=== PATIENT | female | born 1930 | race Caucasian/White ===

== ENCOUNTER 2017-06-19 14:16 | Inpatient (IN) | payer BC, OTHER ==
[2017-06-19 14:37] VITALS: BMI 24.2
--- NOTE | 2017-06-19 16:09 | PDOC ---
History of Present Illness - General History Source: Patient, Family Exam Limitations: No Limitations - History of Present Illness Initial Comments: 06/19/17 16:42 The patient is a 86 year old female presenting with her daughter, with a significant past medical history of HTN, dementia, hypothyroidism, anemia, COPD , bradycardia and hard of hearing, who presents to the emergency department with rectal bleeding since this morning. The daughter notes that the patient's rectal bleeding is red and heavy accompanied with clots. The patient's last bowel movement was 30 minutes prior to presentation. She also notes that the patient has been having loose bowel movements over the past few months. The daughter reports that the patient fell 2 weeks ago, landing on her behind. The patient denies chest pain, shortness of breath, headache and dizziness. Denies fever, chills, nausea, vomit, and constipation. Denies dysuria, frequency , urgency and hematuria. History limited due to dementia. Allergies: None Past surgical history: None reported Social history: No alcohol, tobacco or drug use reported <Mansoor Parra - Last Filed: 06/19/17 16:42> <Derik Escobedo - Last Filed: 06/19/17 21:04> <Azar Edwards - Last Filed: 06/24/17 00:43> - General Chief Complaint: Rectal Bleed Stated Complaint: RECTAL BLEEDING Time Seen by Provider: 06/19/17 14:54 Past History <Mansoor Parra - Last Filed: 06/19/17 16:42> <Derik Escobedo - Last Filed: 06/19/17 21:04> - Past Medical History Anemia: Yes Asthma: Yes CVA: Yes COPD: Yes Dementia: Yes HTN: Yes Hypercholesterolemia: Yes Thyroid Disease: Yes - Psycho/Social/Smoking Cessation Hx Anxiety: No Suicidal Ideation: No Smoking History: Never smoked If you are a former smoker, when did you quit?: 20yrs Information on smoking cessation initiated: No Hx Alcohol Use: No Drug/Substance Use Hx: No Substance Use Type: None <Azar Edwards - Last Filed: 06/24/17 00:43> - Past Medical History Allergies/Adverse Reactions: Allergies Allergy/AdvReac Type Severity Reaction Status Date / Time No Known Allergies Allergy Verified 06/19/17 14:37 Home Medications: Ambulatory Orders Atenolol [Tenormin -] 50 mg PO DAILY 06/19/17 Budesonide [Pulmicort 0.5 mg Nebulizer -] 1 neb NEB BID 06/19/17 Levothyroxine [Synthroid -] 75 mcg PO DAILY 06/19/17 Losartan Potassium 100 mg PO DAILY 06/19/17 Donepezil HCl [Aricept -] 5 mg PO DAILY #7 tablet 06/22/17 Psyllium [Metamucil (Sugar-Free) -] 5.85 gm PO BID #60 packet 06/22/17 Ranitidine [Zantac -] 150 mg PO BID #60 tablet 06/22/17 Review of Systems - Review of Systems Able to Perform ROS?: Yes Comments:: 06/19/17 16:42 CONSTITUTIONAL: No reported: Fever, Chills, Diaphoresis, Generalized Weakness, Malaise, Loss of Appetite HEENT: No reported: Rhinorrhea, Nasal Congestion, Throat Pain, Throat Swelling, Difficulty Swallowing, Mouth Swelling, Ear Pain, Eye Pain, Visual Changes CARDIOVASCULAR: No reported: Chest Pain, Syncope, Palpitations, Irregular Heart Rate, Lightheadedness, Peripheral Edema RESPIRATORY: No reported: Cough, Shortness of Breath, SOB with Exertion, Orthopnea, Wheezing , Stridor, Hemoptysis GASTROINTESTINAL: Reported: Rectal bleeding and diarrhea. No reported: Abdominal pain, Abdominal Distension, Nausea, Vomiting, Constipation GENITOURINARY: No reported: Dysuria, Frequency, Urgency, Hesitancy, Flank Pain, Genital Pain MUSCULOSKELETAL: No reported: Myalgia, Arthralgia, Joint Swelling, Back pain, Neck Pain SKIN: No reported: Rash, Itching, Pallor HEMEATOLOGIC/IMMUNOLOGIC: No reported: Easy Bleeding, Easy Bruising, Lymphadenopathy, Frequent infections ENDOCRINE: No reported: Unexplained Weight Gain, Unexplained Weight Loss, Heat Intolerance , Cold Intolerance NEUROLOGIC: No reported: Headache, Focal Weakness, Paresthesias, Vertigo, Lightheadedness, Unsteady Gait, Seizure, Mental Status Changes, Incontinence PSYCHIATRIC: No reported: Anxiety, Depression <Mansoor Parra - Last Filed: 06/19/17 16:42> *Physical Exam - Vital Signs Last Vital Signs Temp Pulse Resp BP Pulse Ox 98.1 F 47 L 16 154/70 93 L 06/19/17 14:26 06/19/17 14:26 06/19/17 14:26 06/19/17 14:26 06/19/17 14:26 - Physical Exam Comments: 06/19/17 16:43 GENERAL: The patient is awake, alert, and fully oriented, Nontoxic - in no acute distress. HEAD: Normocephalic, atraumatic. EYES: extraocular movements intact, sclera anicteric, conjunctiva clear. ENT: Normal voice, Moist mucous membranes. NECK: Normal range of motion, supple LUNGS: Breath sounds equal, clear to auscultation bilaterally. No wheezes, no rhonchi, no rales. HEART: (+) Bradycardic. Without murmur, rub or gallop. ABDOMEN: Soft, nontender, normoactive bowel sounds. No guarding, no rebound.No CVA tenderness EXTREMITIES: Normal range of motion, no edema. No clubbing or cyanosis. No cords, erythema, or tenderness. NEUROLOGICAL: No facial assymetry, Normal speech, PSYCH: Normal mood, normal affect. SKIN: Warm, Dry, normal turgor RECTAL EXAM: (+) Maroon colored stool. <Mansoor Parra - Last Filed: 06/19/17 16:42> - Vital Signs Last Vital Signs Temp Pulse Resp BP Pulse Ox 98.1 F 47 L 16 154/70 93 L 06/19/17 14:26 06/19/17 14:26 06/19/17 14:26 06/19/17 14:26 06/19/17 14:26 <Derik Escobedo - Last Filed: 06/19/17 21:04> - Vital Signs Last Vital Signs Temp Pulse Resp BP Pulse Ox 98.1 F 47 L 16 154/70 93 L 06/19/17 14:26 06/19/17 14:26 06/19/17 14:26 06/19/17 14:26 06/19/17 14:26 <Azar Edwards - Last Filed: 06/24/17 00:43> Heart Score/ECG Review - ECG Impressions Comment:: 06/19/17 16:12 Twelve-lead EKG was performed and reviewed by me. There is normal sinus rhythm with a heart rate of 44, LAFB moderate criteria for LVG <Azar Edwards - Last Filed: 06/24/17 00:43> ED Treatment Course - LABORATORY CBC & Chemistry Diagram: 06/19/17 15:55 06/19/17 15:55 - ADDITIONAL ORDERS Additional order review: Laboratory Results 06/19/17 15:52 Stool Occult Blood Positive 06/19/17 15:55 RBC 3.74 MCV 96.0 MCHC 33.3 RDW 13.3 MPV 9.5 Neutrophils % 54.4 Lymphocytes % 29.3 Monocytes % 11.7 H Eosinophils % 3.9 Basophils % 0.7 <Mansoor Parra - Last Filed: 06/19/17 16:42> - LABORATORY CBC & Chemistry Diagram: 06/19/17 15:55 06/19/17 15:55 - ADDITIONAL ORDERS Additional order review: Laboratory Results 06/19/17 06/19/17 06/19/17 15:55 15:55 15:55 INR 1.07 Sodium 139 Potassium 4.6 Chloride 104 Carbon Dioxide 31 Anion Gap 4 L BUN 22 H Creatinine 1.1 H Creat Clearance w eGFR 46.98 Random Glucose 74 Calcium 9.4 Total Bilirubin 0.4 AST 17 ALT 17 Alkaline Phosphatase 59 Total Protein 6.6 Albumin 3.2 L Stool Occult Blood Blood Type O POSITIVE Antibody Screen Negative 06/19/17 15:52 INR Sodium Potassium Chloride Carbon Dioxide Anion Gap BUN Creatinine Creat Clearance w eGFR Random Glucose Calcium Total Bilirubin AST ALT Alkaline Phosphatase Total Protein Albumin Stool Occult Blood Positive Blood Type Antibody Screen 06/19/17 15:55 RBC 3.74 MCV 96.0 MCHC 33.3 RDW 13.3 MPV 9.5 Neutrophils % 54.4 Lymphocytes % 29.3 Monocytes % 11.7 H Eosinophils % 3.9 Basophils % 0.7 <Derik Escobedo - Last Filed: 06/19/17 21:04> - LABORATORY CBC & Chemistry Diagram: 06/21/17 16:45 06/21/17 08:28 - RADIOLOGY Radiology Studies Ordered: Category Date Time Status ABDOMEN & PELVIS CT WITH CONTR [CT] Stat CT Scan 06/19/17 15:19 Ordered CHEST X-RAY PORTABLE* [RAD] Stat Radiology 06/19/17 15:16 Ordered <Azar Edwards - Last Filed: 06/24/17 00:43> Medical Decision Making - Medical Decision Making 06/19/17 21:04 CT of abdomen and pelvis reveals increased thickness of the wall of the ascending and transverse colon. No other abnormalities noted. No indication for antibiotic therapy at this time. <Derik Escobedo - Last Filed: 06/19/17 21:04> - Medical Decision Making 06/19/17 16:09 86y F hx of copd, anemia, cva, dementia, htn, hl, hypothryoidsm presents with GIB, pt notes she has had multiple episodes of rectal bleeding that is maroon, red and without associated fever/chills, n/v, abd pain, chest pain, palpitations , lightheadedness. on exam pt is notably bradycardic, but daughter states pt is typically bradycardic. he also has some marie stool on rectal exam. bp stable suspect LGIB, diverticular bleed will ck labs, ct abd pt on monitoring analyst will continue to monitor 06/19/17 17:09 pt signed out to dr. escobedo to fu with results, reassess the pt and disposition the pt <Azar Edwards - Last Filed: 06/24/17 00:43> *DC/Admit/Observation/Transfer - Attestations Scribe Attestion: 06/19/17 16:43 Documentation prepared by Mansoor Parra, acting as medical affairs leader for Azar Edwards MD <Mansoor Parra - Last Filed: 06/19/17 16:42> - Discharge Dispostion Admit: Yes <Derik Escobedo - Last Filed: 06/19/17 21:04> <Azar Edwards - Last Filed: 06/24/17 00:43> Diagnosis at time of Disposition: Rectal bleed - Discharge Dispostion Disposition: VNS/HOME HEALTH CARE Condition at time of disposition: Stable - Prescriptions - Referrals
[2017-06-19 16:20] LABS: BASOPHIL 0.7 % (0-2.0); EOSINOPHIL 3.9 % (0-4.5); MCH 31.9 pg (25.7-33.7); MCHC 33.3 g/dl (32.0-36.0); MEAN PLT VOLUME 9.5 fl (7.5-11.1); NEUTROPHILS 54.4 % (42.8-82.8); PLATELET COUNT 205 K/MM3 (134-434); RDW 13.3 % (11.6-15.6); WHITE BLOOD COUNT 5.9 K/mm3 (4.0-10.0)
[2017-06-19 16:31] LABS: INR 1.07 (0.82-1.09); PROTHROMBIN TIME (PATIENT) 11.8 SEC (9.98-11.88)
[2017-06-19 16:46] LABS: ALBUMIN 3.2 g/dl (3.4-5.0); ANION GAP 4 (8-16); BILIRUBIN,TOTAL 0.4 mg/dL (0.2-1.0); CALCIUM 9.4 mg/dL (8.5-10.1); CO2 31 mmol/L (21-32); CREATININE 1.1 mg/dL (0.55-1.02); GLUCOSE,RANDOM 74 mg/dL (74-106); SGOT/AST 17 U/L (15-37); SGPT/ALT 17 U/L (12-78); TOT PROT 6.6 g/dl (6.4-8.2)
[2017-06-19 16:47] LABS: ALK PHOS 59 U/L (45-117)
--- NOTE | 2017-06-19 17:55 | HP ---
CHIEF COMPLAINT: Rectal bleeding PCP: Dr. Janette Franco, [place]/[facility] HISTORY OF PRESENT ILLNESS: 86 year-old female with a PMH significant for HTN, bradycardia, COPD, stomach ulcers, anemia, dementia, and hypothyroidism. The patient's daughter brought her to the ED with a report of several episodes of rectal bleeding since this morning. The bleeding was reportedly red/maroon, heavy, with clots. Patient denies abdominal pain. Denies nausea, vomiting, diarrhea, or constipation. Denies dysuria, frequency, urgency, or hematuria. Daughter thinks last EGD was about 5 years ago, and last colonoscopy was more than 10 years ago. ER course was notable for: (1) Several episodes of maroon stool (2) FOBT + (3) H/H 11.9/35.9 Recent Travel: No PAST MEDICAL HISTORY: Hypertension Bradycardia COPD Dementia Hypothyroidism Anemia Hearing Loss PAST SURGICAL HISTORY: Bilateral hip replacements Social History: Smoking: no Alcohol: no Drugs: no Family History: Mother and sister of stomach cancer Allergies No Known Allergies Allergy (Verified 06/19/17 14:37) HOME MEDICATIONS: Medication Instructions Recorded Atenolol [Tenormin -] 50 mg PO DAILY 06/19/17 Budesonide [Pulmicort 0.5 mg 1 neb NEB BID 06/19/17 Nebulizer -] Donepezil HCl [Aricept -] 10 mg PO DAILY 06/19/17 Levothyroxine [Synthroid -] 75 mcg PO DAILY 06/19/17 Losartan Potassium 100 mg PO DAILY 06/19/17 REVIEW OF SYSTEMS CONSTITUTIONAL: Absent: fever, chills, diaphoresis, generalized weakness, malaise, loss of appetite, weight change HEENT: Absent: rhinorrhea, nasal congestion, throat pain, throat swelling, difficulty swallowing, mouth swelling, ear pain, eye pain, visual changes CARDIOVASCULAR: Absent: chest pain, syncope, palpitations, irregular heart rate, lightheadedness , peripheral edema RESPIRATORY: Absent: cough, shortness of breath, dyspnea with exertion, orthopnea, wheezing, stridor, hemoptysis GASTROINTESTINAL: Present: dark-red blood per rectum Absent: abdominal pain, abdominal distension, nausea, vomiting, diarrhea, constipation, GENITOURINARY: Absent: dysuria, frequency, urgency, hesitancy, hematuria, flank pain, genital pain MUSCULOSKELETAL: Absent: myalgia, arthralgia, joint swelling, back pain, neck pain SKIN: Absent: rash, itching, pallor HEMATOLOGIC/IMMUNOLOGIC: Absent: easy bleeding, easy bruising, lymphadenopathy, frequent infections ENDOCRINE: Absent: unexplained weight gain, unexplained weight loss, heat intolerance, cold intolerance NEUROLOGIC: Absent: headache, focal weakness or paresthesias, dizziness, unsteady gait, seizure, mental status changes, bladder or bowel incontinence PSYCHIATRIC: Absent: anxiety, depression, suicidal or homicidal ideation, hallucinations. PHYSICAL EXAMINATION Vital Signs - 24 hr 06/19/17 14:26 Temperature 98.1 F Pulse Rate 47 L Respiratory 16 Rate Blood Pressure 154/70 O2 Sat by Pulse 93 L Oximetry (%) GENERAL: Awake, alert, and fully oriented, in no acute distress. HEAD: Normal with no signs of trauma. EYES: Pupils equal, round and reactive to light, extraocular movements intact, sclera anicteric, conjunctiva clear. No lid lag. EARS, NOSE, THROAT: Ears normal, nares patent, oropharynx clear without exudates. Moist mucous membranes. NECK: Normal range of motion, supple without lymphadenopathy, JVD, or masses. LUNGS: Breath sounds equal, clear to auscultation bilaterally. No wheezes, and no crackles. No accessory muscle use. HEART: Regular rate and rhythm, normal S1 and S2 without murmur, rub or gallop. ABDOMEN: Soft, nontender, not distended, normoactive bowel sounds, no guarding, no rebound, no masses. No hepatomegaly or splenomegaly. MUSCULOSKELETAL: Normal range of motion at all joints. No bony deformities or tenderness. No CVA tenderness. UPPER EXTREMITIES: 2+ pulses, warm, well-perfused. No cyanosis. No clubbing. No peripheral edema. LOWER EXTREMITIES: 2+ pulses, warm, well-perfused. No calf tenderness. No peripheral edema. NEUROLOGICAL: Cranial nerves II-XII intact. Normal speech. Normal gait. PSYCHIATRIC: Cooperative. Good eye contact. Appropriate mood and affect. SKIN: Warm, dry, normal turgor, no rashes or lesions noted, normal capillary refill. Laboratory Results - last 24 hr 06/19/17 06/19/17 06/19/17 15:52 15:55 15:55 WBC 5.9 RBC 3.74 Hgb 11.9 Hct 35.9 MCV 96.0 MCH 31.9 MCHC 33.3 RDW 13.3 Plt Count 205 MPV 9.5 Neutrophils % 54.4 Lymphocytes % 29.3 Monocytes % 11.7 H Eosinophils % 3.9 Basophils % 0.7 INR 1.07 Sodium Potassium Chloride Carbon Dioxide Anion Gap BUN Creatinine Creat Clearance w eGFR Random Glucose Calcium Total Bilirubin AST ALT Alkaline Phosphatase Total Protein Albumin Stool Occult Blood Positive Blood Type Antibody Screen 06/19/17 06/19/17 15:55 15:55 WBC RBC Hgb Hct MCV MCH MCHC RDW Plt Count MPV Neutrophils % Lymphocytes % Monocytes % Eosinophils % Basophils % INR Sodium 139 Potassium 4.6 Chloride 104 Carbon Dioxide 31 Anion Gap 4 L BUN 22 H Creatinine 1.1 H Creat Clearance w eGFR 46.98 Random Glucose 74 Calcium 9.4 Total Bilirubin 0.4 AST 17 ALT 17 Alkaline Phosphatase 59 Total Protein 6.6 Albumin 3.2 L Stool Occult Blood Blood Type O POSITIVE Antibody Screen Negative ASSESSMENT/PLAN 86 year-old female with a PMH significant for HTN, bradycardia, stomach ulcers, anemia, COPD, dementia, and hypothyroidism. Admitted for lower GI bleed. Lower GI bleed h/o stomach ulcers --h/h stable; repeat cbc 10:00pm --CTAP with contrast pending --type and screen done --IV fluids Normocytic anemia --h/h stable Hypertension --BP 154/70 on admission --hold anti-hypertensives (losartan, atenolol) for now due to bleeding Bradycardia --HR 47, daughter says baseline COPD --continue budenoside Dementia --continue donepezil Hypothyroidism --f/u TSH --continue levothyroxine F/E/N Fluids: D5NS@ 125mL/hr Electrolytes: replete as indicated Nutrition: NPO DVT prophylaxis: SCDs, ambulation Physical therapy evaluation Dispo: continues to require inpatient care. Full code. Visit type - Emergency Visit Emergency Visit: Yes ED Registration Date: 06/19/17 Care time: The patient presented to the Emergency Department on the above date and was hospitalized for further evaluation of their emergent condition. - New Patient This patient is new to me today: Yes Date on this admission: 06/19/17 - Critical Care Critical Care patient: No
[2017-06-19] MEDS: DEXTROSE 5%-NORMAL SALINE 1,000 ML IV SCH (20:38)
[2017-06-19 23:55] LABS: BASOPHIL 0.6 % (0-2.0); EOSINOPHIL 2.9 % (0-4.5); MCH 31.9 pg (25.7-33.7); MCHC 32.6 g/dl (32.0-36.0); MEAN CELL VOLUME 97.8 fl (80-96); MEAN PLT VOLUME 9.8 fl (7.5-11.1); NEUTROPHILS 38.7 % (42.8-82.8); PLATELET COUNT 239 K/MM3 (134-434); RDW 13.2 % (11.6-15.6)
[2017-06-20] MEDS: LEVOTHYROXINE NA 75 MCG TABLET (FP) PO SCH (06:57)
--- NOTE | 2017-06-20 08:14 | EKG ---
Test Reason : Blood Pressure : / mmHG Vent. Rate : 044 BPM Atrial Rate : 044 BPM P-R Int : 196 ms QRS Dur : 088 ms QT Int : 470 ms P-R-T Axes : 015 -49 076 degrees QTc Int : 401 ms MARKED SINUS BRADYCARDIA LEFT ANTERIOR FASCICULAR BLOCK MODERATE VOLTAGE CRITERIA FOR LVH, MAY BE NORMAL VARIANT CANNOT RULE OUT SEPTAL INFARCT , AGE UNDETERMINED ABNORMAL ECG NO PREVIOUS ECGS AVAILABLE Confirmed by JUAN BISHOP, RADHA ([id number]) on 06/20/2017 8:13:43 AM Referred By: Confirmed By:RADHA MARTINEZ MD
[2017-06-20 09:00] LABS: BASOPHIL 0.5 % (0-2.0); EOSINOPHIL 0.4 % (0-4.5); MCHC 33.1 g/dl (32.0-36.0); MEAN CELL VOLUME 96.7 fl (80-96); MEAN PLT VOLUME 9.3 fl (7.5-11.1); NEUTROPHILS 72.4 % (42.8-82.8); PLATELET COUNT 187 K/MM3 (134-434); RDW 13.3 % (11.6-15.6); WHITE BLOOD COUNT 6.4 K/mm3 (4.0-10.0)
[2017-06-20 09:27] LABS: INR 1.09 (0.82-1.09)
[2017-06-20 09:30] LABS: ACTIVATED PTT 28.4 SECONDS (26.9-34.4)
[2017-06-20 10:10] LABS: ALBUMIN 2.7 g/dl (3.4-5.0); ANION GAP 6 (8-16); CALCIUM 8.7 mg/dL (8.5-10.1); CO2 28 mmol/L (21-32); GLUCOSE,RANDOM 104 mg/dL (74-106)
[2017-06-20] MEDS: DEXTROSE 5%-NORMAL SALINE 1,000 ML IV SCH (10:12)
[2017-06-20 10:14] LABS: ALK PHOS 51 U/L (45-117); BILIRUBIN,TOTAL 0.4 mg/dL (0.2-1.0); CREATININE 1.1 mg/dL (0.55-1.02); PHOSPHOROUS 4.4 mg/dL (2.5-4.9); SGOT/AST 13 U/L (15-37); SGPT/ALT 14 U/L (12-78); TOT PROT 5.5 g/dl (6.4-8.2)
--- NOTE | 2017-06-20 10:37 | CON.GI ---
Consult Consult Specialty:: GI - For Dr. Keenan Vaughn Referred by:: Hospitalist Terrence Reason for Consultation:: Rectal bleeding - History of Present Illness Chief Complaint: Rectal bleeding History of Present Illness: 86F admitted for evaluation of rectal bleeding yesterday afternoon. She has a history of dementia and is accompanied by her daughter who provided the history. Apparently Ms. Couch had a BM yesterday morning then began to pass bright red blood as well as clots from her rectum. This was around 10 AM anfd the bleeding persisted prompting ER evaluation. In the ER triage vitals revealed T: 98 P: 47 BP: 154/70. A CTA was performed in the ER however given that PO contrast was ordered as well, it was not a suitable exam for localizing the GI bleed. It did reveal extensive diverticulosis throughout the colon. Initial Hgb was 11.9 and this morning it was 10. There has been no similar episodes in the past. There was no associated nausea, vomiting, abdominal pain fevers/chills. Her daughter says that Ms. Couch has has looser green BM's of late. She also takes ASA 81mg once daily, and an iron pill every other day given a history of anemia. Her daughter believes that her mother had an upper endoscopy and colonoscopy several years ago that were OK. There is mention of PUD in the H&P however this was not described by Ms. Couch's daughter. Overnight a large volume of dark red blood was reported, none this AM. Ms. Couch's mother had a history of "stomach cancer" as did her younger sister. Her older sister had a history of colon polyps. - History Source History Provided By: Family Member, Medical Record Limitations to Obtaining History: Dementia - Past Medical History ARCHEOLOGIST: Yes: Alzheimer's Cardio/Vascular: Yes: HTN Pulmonary: Yes: COPD (? COPD. This was in H&P but not mentioned by daughter) Infectious Disease: Yes: Tuberculosis (In youth) Endocrine: Yes: Hypothyroidism - Past Surgical History Past Surgical History: Yes: Appendectomy (Possible appendectomy given rlq scar) , , Hysterectomy, Joint Replacement (B/L Hips) - Alcohol/Substance Use Hx Alcohol Use: No History of Substance Use: reports: None - Smoking History Smoking history: Never smoked If you are a former smoker, when did you quit?: 20yrs - Social History Usual Living Arrangement: With Child ADL: Family Assistance Place of : Other ([place]) History of Recent Travel: No Home Medications - Allergies Allergies/Adverse Reactions: Allergies Allergy/AdvReac Type Severity Reaction Status Date / Time No Known Allergies Allergy Verified 06/19/17 14:37 - Home Medications Home Medications: Ambulatory Orders Atenolol [Tenormin -] 50 mg PO DAILY 06/19/17 Budesonide [Pulmicort 0.5 mg Nebulizer -] 1 neb NEB BID 06/19/17 Donepezil HCl [Aricept -] 10 mg PO DAILY 06/19/17 Levothyroxine [Synthroid -] 75 mcg PO DAILY 06/19/17 Losartan Potassium 100 mg PO DAILY 06/19/17 Family Disease History - Family Disease History Family Disease History: Other: Mother (Stomach Ca), Sister (1 w/ Stomach Ca 1 with colon polyps) Review of Systems - Review of Systems Constitutional: denies: Chills, Unintentional Wgt. Loss Cardiovascular: denies: Chest Pain Respiratory: denies: SOB Gastrointestinal: reports: Diarrhea, Rectal Bleeding. denies: Abdominal Pain, Bloating, Constipation, Nausea, Vomiting, Vomiting Blood Hematology/Lymphatic: denies: Easily Bruised Physical Exam-GI Vital Signs: Vital Signs Temperature 97.9 F 06/20/17 08:00 Pulse Rate 56 L 06/20/17 08:00 Respiratory Rate 20 06/20/17 08:00 Blood Pressure 135/62 06/20/17 08:00 O2 Sat by Pulse Oximetry (%) 96 06/19/17 22:00 Constitutional: Yes: Calm Eyes: No: Sclera Icterus Cardiovascular: Yes: Bradycardia (Regular rhythm). No: Murmur Respiratory: Yes: CTA Bilaterally Gastrointestinal Inspection: Yes: Scars (Vertical pelvic surgical scar, + ? faint RLQ surgical scar). No: Distention ...Auscultate: Yes: Normoactive Bowel Sounds ...Palpate: No: Hepatomegaly, Splenomegaly, Tenderness ...Percussion: No: Tympanitic ...Rectal Exam: Yes: Other (Small amount of dark red stool in rectal vault) Edema: No Neurological: Yes: Alert Labs: CBC, BMP 06/20/17 07:25 06/20/17 07:25 INR, PTT INR 1.09 (0.82-1.09) 06/20/17 07:25 Problem List - Problems (1) Rectal bleed Assessment/Plan: Remains hemodynamically stable CTA was non-diagnostic given that PO contrast was given in the ER so was of no use for localizing the bleed. Higher in the differential would need to be diverticular hemorrhage given CT scan findings as opposed to upper GI source given her hemodynamic stability in the setting of hematochezia. Would advise the following: Maintain NPO with IV hydration Repeat CBC 1pm Transfer to monitored setting. If significant rectal bleeding occurs / change in hemodynamics, transfer to ICU Protonix 40mg IVPB for now Type and screen, large bore IV access for resuscitation if necessary ? need for continued ASA as an outpatient. This will need to be discussed further with her PMD I did discuss both upper endoscopy and colonoscopy with Ms. Couch and her daughter who was present bedside. We discussed potential risks of the procedures like but not limited to bleeding, perforation requiring surgery to repair, infection and sedation medication effects all of which could be potentially life threatening. We also discussed not having the procedures performed as an option. They have both agreed to the procedures. Ms. Couch' s daughter signed given Ms. Couch's history of Dementia. Dr. Vaughn will resume coverage 06/21/17 Code(s): K62.5 - HEMORRHAGE OF ANUS AND RECTUM (2) Bradycardia Assessment/Plan: On atenolol w/ stable BP Being monitored Code(s): R00.1 - BRADYCARDIA, UNSPECIFIED
--- NOTE | 2017-06-20 10:47 | PN ---
Physical Exam: SUBJECTIVE: Patient seen and examined. Denies abdominal pain. Voices no complaints. Advised by daughter and overnight staff patient became very agitated last night when daughter not present, pulled out IV, aggressive with staff. Daughter reported yesterday to this provider patient had remote h/o stomach ulcers. Daughter further reports patient is on home low-dose ASA and daily meclizine OBJECTIVE: Vital Signs Period Temp Pulse Resp BP Sys/Beltran Pulse Ox Last 24 Hr 97.8 F-98.2 F 46-91 18-20 127-168/60-87 96-97 GENERAL: The patient is awake, alert. A&Ox2. HEAD: Normal with no signs of trauma. EYES: PERRL, extraocular movements intact, sclera anicteric, conjunctiva clear. No ptosis. LUNGS: Breath sounds equal, clear to auscultation bilaterally, no wheezes, no crackles, no accessory muscle use. HEART: Regular rate and rhythm, S1, S2 without murmur, rub or gallop. ABDOMEN: Soft, nontender, nondistended, normoactive bowel sounds, no guarding, no rebound EXTREMITIES: 2+ pulses, warm, well-perfused, no edema. NEUROLOGICAL: Cranial nerves II through XII grossly intact. Normal speech, gait not observed. Laboratory Results - last 24 hr 06/19/17 06/20/17 06/20/17 23:45 07:25 07:25 WBC 12.0 H D 6.4 D RBC 3.77 3.12 L Hgb 12.0 10.0 L D Hct 36.9 30.2 L D MCV 97.8 H 96.7 H MCH 31.9 32.0 MCHC 32.6 33.1 RDW 13.2 13.3 Plt Count 239 187 D MPV 9.8 9.3 Neutrophils % 38.7 L D 72.4 D Lymphocytes % 48.8 H D 19.9 D Monocytes % 9.0 6.8 Eosinophils % 2.9 0.4 D Basophils % 0.6 0.5 INR 1.09 PTT (Actin FS) 28.4 Sodium Potassium Chloride Carbon Dioxide Anion Gap BUN Creatinine Creat Clearance w eGFR Random Glucose Calcium Phosphorus Magnesium Total Bilirubin AST ALT Alkaline Phosphatase Total Protein Albumin TSH 06/20/17 06/20/17 07:25 07:25 WBC RBC Hgb Hct MCV MCH MCHC RDW Plt Count MPV Neutrophils % Lymphocytes % Monocytes % Eosinophils % Basophils % INR PTT (Actin FS) Sodium 139 Potassium 4.7 Chloride 105 Carbon Dioxide 28 Anion Gap 6 L BUN 24 H Creatinine 1.1 H Creat Clearance w eGFR 46.98 Random Glucose 104 D Calcium 8.7 Phosphorus 4.4 Magnesium 2.0 Total Bilirubin 0.4 AST 13 L D ALT 14 Alkaline Phosphatase 51 Total Protein 5.5 L Albumin 2.7 L TSH 0.91 Active Medications Generic Name Dose Route Start Last Admin Trade Name January PRN Reason Stop Dose Admin Budesonide 1 amp 06/19/17 22:00 Pulmicort 0.5 Mg Nebulizer - NEB BID LONG Donepezil HCl 10 mg 06/20/17 10:00 Aricept - PO DAILY LONG Dextrose/Sodium Chloride 1,000 mls @ 125 mls/hr 06/19/17 18:00 06/19/17 20:38 D5-Ns - IV 125 mls/hr ASDIR LONG Administration Levothyroxine Sodium 75 mcg 06/20/17 07:00 06/20/17 06:57 Synthroid - PO 75 mcg ACBK LONG Administration ASSESSMENT/PLAN 86 year-old female with a PMH significant for HTN, bradycardia, stomach ulcers, anemia, COPD, dementia, and hypothyroidism. Admitted for lower GI bleed. Lower GI bleed h/o stomach ulcers Normocytic anemia --large maroon-stool movement overnight; Hgb 12.0-->10.0 --8/5 CTAP: extensive diffuse diverticulosis; non-diagnostic for GI bleed due to PO contrast --cbc q6h --IV fluids --hold home ASA --protonix IVPB --large bore access --current type and screen --daughter has signed consent for EGD and colonoscopy Hypertension --normotensive off anti-hypertensives, continue to hold due to bleeding Bradycardia --HR 40-50s, baseline --asymptomatic COPD --continue budenoside Dementia with agitation --continue donepezil --hold home meclizine Hypothyroidism --f/u TSH --continue levothyroxine F/E/N Fluids: D5NS@ 125mL/hr Electrolytes: replete as indicated Nutrition: NPO DVT prophylaxis: SCDs, ambulation Physical therapy evaluation Dispo: Transfer to telemetry. Full Code. Visit type - Emergency Visit Emergency Visit: Yes ED Registration Date: 06/19/17 Care time: The patient presented to the Emergency Department on the above date and was hospitalized for further evaluation of their emergent condition. - New Patient This patient is new to me today: No - Critical Care Critical Care patient: No
[2017-06-20] MEDS ORDERED: PT OWN MED DRAWER 7, Y5N ONE (11:28)
[2017-06-20] MEDS: DONEPEZIL HCL 10 MG TABLET (FP) PO SCH (11:34)
[2017-06-20] MEDS ORDERED: PANTOPRAZOLE SODIUM 40 MG VIAL ONE (12:16)
[2017-06-20] MEDS ORDERED: SODIUM CHLORIDE 100 ML IVPB ONE (12:16)
[2017-06-20] MEDS: PANTOPRAZOLE SODIUM 40 MG in SODIUM CHLORIDE 100 ML IVPB SCH (12:19)
[2017-06-20 13:00] LABS: MCH 31.8 pg (25.7-33.7); MCHC 32.8 g/dl (32.0-36.0); MEAN CELL VOLUME 96.8 fl (80-96); MEAN PLT VOLUME 9.3 fl (7.5-11.1); PLATELET COUNT 182 K/MM3 (134-434); RDW 13.1 % (11.6-15.6); WHITE BLOOD COUNT 5.9 K/mm3 (4.0-10.0)
[2017-06-20] MEDS ORDERED: SODIUM CHLORIDE 500 ML IV STA (13:05)
[2017-06-20] MEDS ORDERED: BISACODYL 5 MG TABLET.DR (FP) PO ONE (17:00)
[2017-06-20] MEDS ORDERED: PEG3350/SOD SULF,BICARB,CL/KCL 4,000 ML SOLN.RECON PO ONE (18:00)
[2017-06-20] MEDS ORDERED: DEXTROSE 5%-NORMAL SALINE 1,000 ML IV SCH (19:13)
[2017-06-20 21:50] LABS: BASOPHIL 0.5 % (0-2.0); EOSINOPHIL 2.3 % (0-4.5); MCH 32.1 pg (25.7-33.7); MCHC 33.2 g/dl (32.0-36.0); MEAN CELL VOLUME 96.9 fl (80-96); MEAN PLT VOLUME 9.5 fl (7.5-11.1); NEUTROPHILS 63.4 % (42.8-82.8); PLATELET COUNT 194 K/MM3 (134-434); RDW 13.1 % (11.6-15.6); WHITE BLOOD COUNT 7.5 K/mm3 (4.0-10.0)
[2017-06-20] MEDS: BUDESONIDE 0.5 MG/2 ML INH SUSP VIAL NEB SCH (22:28)
[2017-06-21 01:36] LABS: BASOPHIL 0.5 % (0-2.0); EOSINOPHIL 2.8 % (0-4.5); MEAN PLT VOLUME 9.4 fl (7.5-11.1); NEUTROPHILS 56.3 % (42.8-82.8); PLATELET COUNT 201 K/MM3 (134-434); RDW 13.2 % (11.6-15.6); WHITE BLOOD COUNT 7.8 K/mm3 (4.0-10.0)
--- NOTE | 2017-06-21 03:14 | HOSP ---
Subjective - Review of Symptoms Events since last encounter: Hospitalist Encounter Notified by the nurse that the nursing diversified crops supervisor requested that the patient be reassessed for telemetry Arrived to bedside, patient is asleep but arousable, patient's daughter is at bedside Per RN, patient is not cooperating with finishing the oral prep for EGD/ Colonoscopy, and her daughter refused NGT placement Patient reassessed, VSS, per RN patient had a BM with blood and clots. Attempts made to place patient in ICU for monitoring secondary to GI bleed, concern for the patient becoming hemodynamically unstable on the floor, since there are no Telemetry beds available. Dr. Odom spoke with the [place] [facility] ATTENDANT who did not accept the case. Will continue to monitor the patient on the [facility] surg floor. Tele order was reluctantly d/cd Physical Examination Vital Signs: Vital Signs Temperature 98.6 F 06/20/17 18:30 Pulse Rate 55 L 06/21/17 01:30 Respiratory Rate 18 06/20/17 21:00 Blood Pressure 148/77 06/21/17 01:30 O2 Sat by Pulse Oximetry (%) 95 06/20/17 21:00 Constitutional: Yes: Well Nourished, Calm Eyes: Yes: WNL, Conjunctiva Clear, PERRL HENT: Yes: WNL, Atraumatic, Normocephalic Cardiovascular: Yes: WNL, Regular Rate and Rhythm, S1, S2 Respiratory: Yes: WNL, Regular, CTA Bilaterally Gastrointestinal: Yes: Normal Bowel Sounds, Rectal Bleeding Peripheral Pulses WNL: Yes Neurological: Yes: WNL, Alert ...Motor Strength: WNL Psychiatric: Yes: WNL, Alert Labs: CBC, BMP 06/21/17 01:30 06/20/17 07:25
[2017-06-21] MEDS: LEVOTHYROXINE NA 75 MCG TABLET (FP) PO SCH (06:48)
[2017-06-21 09:12] LABS: BASOPHIL 0.6 % (0-2.0); MCH 31.7 pg (25.7-33.7); MCHC 32.7 g/dl (32.0-36.0); MEAN PLT VOLUME 9.3 fl (7.5-11.1); NEUTROPHILS 59.7 % (42.8-82.8); PLATELET COUNT 196 K/MM3 (134-434); RDW 13.3 % (11.6-15.6); WHITE BLOOD COUNT 6.5 K/mm3 (4.0-10.0)
[2017-06-21 09:39] LABS: ALBUMIN 3.1 g/dl (3.4-5.0); ANION GAP 9 (8-16); CALCIUM 8.7 mg/dL (8.5-10.1); CO2 24 mmol/L (21-32); GLUCOSE,RANDOM 88 mg/dL (74-106)
[2017-06-21 09:43] LABS: ALK PHOS 52 U/L (45-117); BILIRUBIN,TOTAL 0.7 mg/dL (0.2-1.0); SGOT/AST 20 U/L (15-37); SGPT/ALT 15 U/L (12-78); TOT PROT 6.3 g/dl (6.4-8.2)
[2017-06-21] MEDS: BUDESONIDE 0.5 MG/2 ML INH SUSP VIAL NEB SCH ×2 (10:10→22:05)
[2017-06-21] MEDS ORDERED: PANTOPRAZOLE SODIUM 40 MG VIAL ONE (10:14)
[2017-06-21] MEDS ORDERED: SODIUM CHLORIDE 100 ML IVPB ONE (10:14)
[2017-06-21] MEDS: PANTOPRAZOLE SODIUM 40 MG in SODIUM CHLORIDE 100 ML IVPB SCH (10:20)
[2017-06-21] MEDS: DONEPEZIL HCL 10 MG TABLET (FP) PO SCH (10:21)
[2017-06-21] MEDS ORDERED: PROPOFOL 20 ML ONE ×2 (13:09)
--- NOTE | 2017-06-21 13:45 | PN ---
Progress Note (short form) - Note Progress Note: GASTROENTEROLOGY EGD AND COLONOSCOPY COMPLETE DUODENAL EROSION/ULCER AND DUODENITIS NOT RESPONSIBLE FOR RECTAL BLEEDING DESCRIBED: ZANTAC 150 MG PO BID SEVERE COLONIC DIVERTICULOSIS, NORMAL TERMINAL ILEUM AND GRADE 2 HEMORRHOIDS HIGH FIBER DIET/ METAMUCIL BID DISCHARGE PATIENT WHEN MEDICALLY STABLE ROME MCKINNEY MD
--- NOTE | 2017-06-21 16:02 | PN ---
Physical Exam: SUBJECTIVE: Patient seen and examined at the bedside. Her daughter was in attendance and provided the history as patient has hx of dementia. Had small amount of bleeding again this morning OBJECTIVE: h/h low stable Patient is s/p EGD and colonoscopy Severe colonic diverticulosis identiied with grade 2 hemorrhoids Zantac, metamucil BID and high fiber diet recommended by GI Patient initially to be transferred to Tele but not tele beds available overnight Monitor closely, if worsening bleeding, will transfer Vital Signs Period Temp Pulse Resp BP Sys/Beltran Pulse Ox Last 24 Hr 97.2 F-98.6 F 50-86 17-20 103-152/46-78 95-99 GENERAL: The patient is awake, alert and oriented to self, hx of dementia HEAD: Normal with no signs of trauma. EYES: PERRL, extraocular movements intact, sclera anicteric, conjunctiva clear. No ptosis. LUNGS: Breath sounds equal, clear to auscultation bilaterally, no wheezes, no crackles, no accessory muscle use. HEART: sinus bradycardia ABDOMEN: Soft, nontender, nondistended, normoactive bowel sounds, no guarding, no rebound EXTREMITIES: 2+ pulses, warm, well-perfused, no edema. NEUROLOGICAL: Cranial nerves II through XII grossly intact. Normal speech, gait not observed. Laboratory Results - last 24 hr 06/20/17 06/21/17 06/21/17 21:40 01:30 08:28 WBC 7.5 7.8 RBC 3.11 L 3.10 L Hgb 10.0 L 9.9 L Hct 30.1 L 30.1 L MCV 96.9 H 97.0 H MCH 32.1 32.0 MCHC 33.2 33.0 RDW 13.1 13.2 Plt Count 194 201 MPV 9.5 9.4 Neutrophils % 63.4 56.3 Lymphocytes % 23.9 D 30.3 D Monocytes % 9.9 10.1 Eosinophils % 2.3 D 2.8 Basophils % 0.5 0.5 Sodium 144 Potassium 4.2 Chloride 111 H Carbon Dioxide 24 Anion Gap 9 BUN 16 D Creatinine 1.0 Creat Clearance w eGFR 52.45 Random Glucose 88 Calcium 8.7 Total Bilirubin 0.7 D AST 20 D ALT 15 Alkaline Phosphatase 52 Total Protein 6.3 L Albumin 3.1 L 06/21/17 08:28 WBC 6.5 RBC 2.96 L Hgb 9.4 L Hct 28.7 L MCV 97.0 H MCH 31.7 MCHC 32.7 RDW 13.3 Plt Count 196 MPV 9.3 Neutrophils % 59.7 Lymphocytes % 26.4 Monocytes % 9.3 Eosinophils % 4.0 Basophils % 0.6 Sodium Potassium Chloride Carbon Dioxide Anion Gap BUN Creatinine Creat Clearance w eGFR Random Glucose Calcium Total Bilirubin AST ALT Alkaline Phosphatase Total Protein Albumin Active Medications Generic Name Dose Route Start Last Admin Trade Name January PRN Reason Stop Dose Admin Budesonide 1 amp 06/19/17 22:00 06/21/17 10:10 Pulmicort 0.5 Mg Nebulizer - NEB 1 amp BID LONG Administration Donepezil HCl 10 mg 06/20/17 10:00 06/21/17 10:21 Aricept - PO Not Given DAILY LONG Dextrose/Sodium Chloride 1,000 mls @ 75 mls/hr 06/20/17 19:13 D5-Ns - IV ASDIR LONG Levothyroxine Sodium 75 mcg 06/20/17 07:00 06/21/17 06:48 Synthroid - PO Not Given ACBK LONG Psyllium Hydrophilic Mucilloid 5.85 gm 06/21/17 22:00 Metamucil (Sugar-Free) - PO BID LONG ASSESSMENT/PLAN: Patient is an 86 year old female with a significant past medical history of hypertension, bradycardia, stomach ulcers, anemia, COPD, dementia, and hypothyroidism. She was admitted on 06/19/2017 with rectal bleeding. GI: Lower GI bleed A/P: since admission has had large maroon stools with a drop in hmg 12>9.4 CTAP shows extensive diffuse diverticulosis; non-diagnostic for GI bleed due to PO contrast CBC shows slight drop on hmg, monitor closely On D5 NS @75/cc/hr NPO this a.m, diet advanced to high fiver as per GI Hold ASA, On Zantac 150mg BID Metamucil BID Cardiology: Hypertension A/P: Holding antihypertensive meds secondary to hypotension Monitor BP, resume meds likely in a.m. if improved Bradycardia A/P: Heart rate 50s today, likely her baseline Psyche: Dementia with agitation A/P: On donepezil Hypothyroidism A/P: TSH wnl, on Levothyroxine F.E.N. Fluids: D5NS @75/cc/hr Electrlytes: replete Nutrition: high fiber diet DVT prophylaxis: A/C contraindicated secondary to GI bleed, SCDs bilaterally Dispo: Full Code. Visit type - Emergency Visit Emergency Visit: Yes ED Registration Date: 06/19/17 Care time: The patient presented to the Emergency Department on the above date and was hospitalized for further evaluation of their emergent condition. - New Patient This patient is new to me today: Yes Date on this admission: 06/22/17 - Critical Care Critical Care patient: No - Discharge Referral Referred to [facility] Med P.C.: No
[2017-06-21 17:10] LABS: BASOPHIL 0.6 % (0-2.0); EOSINOPHIL 3.2 % (0-4.5); MCH 32.6 pg (25.7-33.7); MCHC 33.6 g/dl (32.0-36.0); MEAN CELL VOLUME 97.2 fl (80-96); MEAN PLT VOLUME 9.4 fl (7.5-11.1); NEUTROPHILS 58.3 % (42.8-82.8); PLATELET COUNT 199 K/MM3 (134-434); RDW 13.2 % (11.6-15.6); WHITE BLOOD COUNT 6.9 K/mm3 (4.0-10.0)
[2017-06-21] MEDS: PSYLLIUM 5.85 GM PACKET PO SCH (22:01)
[2017-06-21] MEDS: RANITIDINE HCL 150 MG TABLET (FP) PO SCH (22:01)
[2017-06-22] MEDS: LEVOTHYROXINE NA 75 MCG TABLET (FP) PO SCH (06:47)
[2017-06-22 08:05] VITALS: TEMP 98.5
[2017-06-22 08:37] VITALS: BP 151/64; PULSE 81
[2017-06-22] MEDS ORDERED: LOSARTAN POTASSIUM 50 MG TABLET (FP) PO SCH (10:00)
[2017-06-22] MEDS ORDERED: DONEPEZIL HCL 5 MG TABLET (FP) PO SCH (10:00)
[2017-06-22] MEDS ORDERED: ATENOLOL 50 MG TABLET (FP) PO SCH (10:00)
[2017-06-22] MEDS: PSYLLIUM 5.85 GM PACKET PO SCH (10:46)
[2017-06-22] MEDS: RANITIDINE HCL 150 MG TABLET (FP) PO SCH (10:46)
--- NOTE | 2017-06-22 10:52 | DS ---
Physical Exam: SUBJECTIVE: Patient seen and examined with her daughters at the bedside. It was reported to me by nursing staff that pt had 2 small "maroon colored" bowel movements this morning. Upon further assessment, patient's daughter just stated to me that her mother had a small BM at apx 12pm today without any evidence of bleeding. She states the stools were brown in color and were solid. OBJECTIVE: I spoke with Dr. Vaughn today and informed him of the 2 small maroon colored stools that were reported. Dr. Vaughn recommended an outpatient capsule endoscopy. Daughter to make an appointment. As per daughter she will may seek to take patient to [facility] where she is regularly seen. A CBC was ordered by me today , but after manager basketball attempted to draw blood and was unsuccessful, patient and family refused further blood draws. Vital Signs Period Temp Pulse Resp BP Sys/Beltran Pulse Ox Last 24 Hr 97.5 F-98.5 F 50-84 17-20 103-155/46-75 98-99 PHYSICAL EXAM GENERAL: The patient is awake, alert and oriented to self, hx of dementia HEAD: Normal with no signs of trauma. EYES: PERRL, extraocular movements intact, sclera anicteric, conjunctiva clear. No ptosis. LUNGS: Breath sounds equal, clear to auscultation bilaterally, no wheezes, no crackles, no accessory muscle use. HEART: sinus bradycardia ABDOMEN: Soft, nontender, nondistended, normoactive bowel sounds, no guarding, no rebound EXTREMITIES: 2+ pulses, warm, well-perfused, no edema. NEUROLOGICAL: Cranial nerves II through XII grossly intact. Normal speech, steady gait with walker. LABS Laboratory Results - last 24 hr 06/21/17 16:45 WBC 6.9 RBC 2.84 L Hgb 9.3 L Hct 27.6 L MCV 97.2 H MCH 32.6 MCHC 33.6 RDW 13.2 Plt Count 199 MPV 9.4 Neutrophils % 58.3 Lymphocytes % 29.8 Monocytes % 8.1 Eosinophils % 3.2 Basophils % 0.6 HOSPITAL COURSE: Date of Admission:06/19/17 Date of Discharge: 06/22/17 ASSESSMENT/PLAN: Patient is an 86 year old female with a significant past medical history of hypertension, bradycardia, stomach ulcers, anemia, COPD, dementia, and hypothyroidism. She was admitted on 06/19/2017 with rectal bleeding. An EGD and colonoscopy were performed on 06/21/2017. GI: Lower GI bleed - resolved A/P: She was noted to have 2 small maroon colored stools this morning and then had a normal brown bowel movement I spoke to Dr. Vaughn who recommends a capsule endoscopy as an outpatient Unclear if patient is having vaginal bleed but family states that there is no evidence of vaginal bleed when she is wiped Since admission she has had a drop in hmg (12>9.3) but as of yesterday, hmg has since stabilized. CBC ordered today but after an unsuccessful attempt, patient and family refused further blood draws even after I stressed the importance of having her blood re- drawn. CTAP shows extensive diffuse diverticulosis; non-diagnostic for GI bleed due to PO contrast Hold ASA, and all NSAIDS Continue Zantac 150mg BID, Metamucil BID Also, advised patient's daughter that her mother's Aricept should be tapered down to 5mg per day for 1 week and then stopped It is unclear if the Donazepil may be contributing to the GI bleed but it is listed as an adverse effect. Cardiology: Hypertension A/P: Resume all anti hypertensive medications Bradycardia A/P: Heart rate between 50s-80s, which is her baseline Psyche: Dementia with agitation A/P: On donepezil which we will taper off for 1 week then stop completely. Spoke to her daughter who is an agreement. Hypothyroidism A/P: TSH wnl, on Levothyroxine Disposition: Would of like to get another CBC prior to discharge but family and patient refused. They state that they well get further blood work with her primary care physician. Patient is stable for discharge. She was able to ambulate with a rolling walker without shortness of breath or dizziness. She will need close follow up from Dr. Vaughn for a capsule endoscopy. Stressed importance of following up with PCP for repeat blood work since they refused here. Also stressed importance of tapering off the Donazepil for 1 week at a lower dose then stopping completely. Daughter in agreement. Minutes to complete discharge: 120 Discharge Summary Reason For Visit: RECTAL BLEEDING Current Active Problems Bradycardia (Acute) Rectal bleed (Acute) Condition: Stable - Instructions Diet, Activity, Other Instructions: Mrs. Couch: You were admitted on 06/19/2017 for a rectal bleed. During admission you were evaluated by Dr. Vaughn (splitter hand) and a colonoscopy was performed. As per Dr. Hartman's recommendations, please call his office to schedule a capsule endoscopy. Please continue with the high fiber diet as ordered by Dr. Vaughn New medications ordered by Dr. Vaughn: Zantac twice per day Metamucil - as directed You were also on a home dose of Aricept 10mg per day. It is unclear if this medication is contributing to the rectal bleeding and therefore we will taper you off for one week at a lower dose (Aricept 5mg for 7 more days then stop taking the Aricept). Please see your primary care physician within one week so that you can be further evaluated. Please do not take any NSAIDs (Advil, aspirin, Ibuprophen) Please call me with any questions that you may have. [facility] Faviola Flores, [place] [phone] Referrals: Janette Franco [Primary Care Provider] - Disposition: HOME - Home Medications Comprehensive Discharge Medication List: Ambulatory Orders Atenolol [Tenormin -] 50 mg PO DAILY 06/19/17 Budesonide [Pulmicort 0.5 mg Nebulizer -] 1 neb NEB BID 06/19/17 Levothyroxine [Synthroid -] 75 mcg PO DAILY 06/19/17 Losartan Potassium 100 mg PO DAILY 06/19/17 Donepezil HCl [Aricept -] 5 mg PO DAILY #7 tablet 06/22/17 Psyllium [Metamucil (Sugar-Free) -] 5.85 gm PO BID #60 packet 06/22/17 Ranitidine [Zantac -] 150 mg PO BID #60 tablet 06/22/17 This patient is new to me today: No Emergency Visit: Yes ED Registration Date: 06/19/17 Care time: The patient presented to the Emergency Department on the above date and was hospitalized for further evaluation of their emergent condition. Critical Care patient: No - Discharge Referral Referred to [facility] Med P.C.: No
--- NOTE | 2017-06-23 14:54 | PATH ---
Surgical Pathology Report Patient Name: ARDEN ESCALANTE Med. Rec. #: [id number] /Age/Gender: 1930 (Age: 86) / F Account: [id number] Location: [address] [place] [address]/[facility] Taken: 06/21/2017 Received: 06/22/2017 Reported: 06/23/2017 Physicians: Keenan Vaughn M.D. Specimen(s) Received BX STOMACH Clinical History Rectal bleeding Duodenitis, duodenal ulcer, duodenal diverticulosis Final Diagnosis STOMACH, BIOPSY: GASTRIC ANTRAL MUCOSA WITH RARE PLASMA CELLS WITHIN LAMINA PROPRIA. NO ACTIVE GASTRITIS IDENTIFIED. IMMUNOSTAIN FOR H. PYLORI IS NEGATIVE. Electronically Signed Sreedhar Zaldivar M.D. Gross Description Received in formalin, labeled "biopsy stomach" is a fonseca, irregular portion of soft tissue measuring 0.3 cm. in greatest dimension. The specimen is submitted in toto in one cassette. 06/22/201706/22/2017
== END 2017-06-22 13:24 | disposition home or self-care (01) | DRG 378 ==
LOC: JER 14:16 → JERBED 19:19 → J6S 21:31
PROVIDERS: ADMIT Internal Medicine; ATTEND Nurse Practitioner Family
PROC: 0DB68ZX Excision of Stomach, Via Natural or Artificial Opening Endoscopic, Diagnostic (ICD-10-PCS; principal; 2017-06-19)
PROC: 0DJD8ZZ Inspection of Lower Intestinal Tract, Via Natural or Artificial Opening Endoscopic (ICD-10-PCS; 2017-06-19)
DX: K62.5 Hemorrhage of anus and rectum (principal); F03.91 Unspecified dementia, unspecified severity, with behavioral disturbance; Z80.0 Family history of malignant neoplasm of digestive organs; I10 Essential (primary) hypertension; K57.10 Diverticulosis of small intestine without perforation or abscess without bleeding; K26.9 Duodenal ulcer, unspecified as acute or chronic, without hemorrhage or perforation; K29.80 Duodenitis without bleeding; K64.1 Second degree hemorrhoids; Z68.24 Body mass index [BMI] 24.0-24.9, adult; E03.9 Hypothyroidism, unspecified; J44.9 Chronic obstructive pulmonary disease, unspecified; D64.9 Anemia, unspecified; H91.8X3 Other specified hearing loss, bilateral; Z87.891 Personal history of nicotine dependence; J45.909 Unspecified asthma, uncomplicated; Z86.73 Personal history of transient ischemic attack (TIA), and cerebral infarction without residual deficits; E78.5 Hyperlipidemia, unspecified; R00.1 Bradycardia, unspecified; Z86.11 Personal history of tuberculosis; R63.4 Abnormal weight loss; Z96.643 Presence of artificial hip joint, bilateral
CPT/HCPCS: 36415; 71010-TC; 74177-TC; 80053; 82272; 83735; 84100; 84443; 85025; 85027; 85610; 85730; 86850; 86900; 86901; 88305-TC; 93005; 93010; 94640; 97116-GP; 97161-GP; 99283-25